=== PATIENT | male | born 2000 | race Caucasian/White ===

== ENCOUNTER 2024-01-26 20:21 | Emergency (ER) | payer OTHER, BC ==
[2024-01-26] MEDS: Ketorolac 10 MG Tab PO STA (21:42)
[2024-01-26] MEDS: Methocarbamol 750 MG Tab PO STA (21:42)
== END 2024-01-26 23:04 | disposition home or self-care (01) ==
LOC: MW.ED 20:21
DX: S16.1XXA Strain of muscle, fascia and tendon at neck level, initial encounter (principal); M54.41 Lumbago with sciatica, right side; Z79.899 Other long term (current) drug therapy; Z75.8 Other problems related to medical facilities and other health care; Z88.8 Allergy status to other drugs, medicaments and biological substances; V49.49XA Driver injured in collision with other motor vehicles in traffic accident, initial encounter; Y93.89 Activity, other specified
CPT/HCPCS: 70450; 72125; 72128; 72131; 99284; A9270; 99283

== ENCOUNTER 2024-07-07 12:44 | Emergency (ER) | payer BC, OTHER ==
[2024-07-07] MEDS ORDERED: Ibuprofen 800 MG Tab PO ONE (13:38)
[2024-07-07] MEDS: Acetaminophen 500 MG Tab PO ONE (13:56)
== END 2024-07-07 15:08 | disposition home or self-care (01) ==
LOC: MW.ED 12:44
DX: R05.9 Cough, unspecified (principal); I10 Essential (primary) hypertension; Z79.899 Other long term (current) drug therapy; Z88.5 Allergy status to narcotic agent; Z75.8 Other problems related to medical facilities and other health care
CPT/HCPCS: 87428; 99284; A9270; 99283

== ENCOUNTER 2024-08-11 21:52 | Emergency (ER) | payer BC, OTHER ==
[2024-08-12 00:02] LABS: APPEARANCE,URINE CLEAR; BILIRUBIN,URINE NEGATIVE (NEGATIVE); COLOR,URINE YELLOW; GLUCOSE,URINE NEGATIVE (NEGATIVE); KETONES,URINE NEGATIVE (NEGATIVE); LEUKOCYTE ESTERASE,URINE NEGATIVE (NEGATIVE); NITRITE,URINE NEGATIVE (NEGATIVE); OCCULT BLOOD,URINE NEGATIVE (NEGATIVE); PROTEIN,URINE NEGATIVE (NEGATIVE); UROBILINOGEN,URINE 0.2 EU/dL (<2.0)
[2024-08-12 01:26] LABS: C. TRACHOMATIS BY PCR NOT DETECTED; N. GONORRHOEAE BY PCR NOT DETECTED
== END 2024-08-12 00:28 | disposition home or self-care (01) ==
LOC: MW.ED 21:52
DX: S30.812A Abrasion of penis, initial encounter (principal); I10 Essential (primary) hypertension; F17.210 Nicotine dependence, cigarettes, uncomplicated; Z88.8 Allergy status to other drugs, medicaments and biological substances; X58.XXXA Exposure to other specified factors, initial encounter
CPT/HCPCS: 36415; 81003; 86592; 87491; 87591; 99283